=== PATIENT | male | born 1990 | race Caucasian/White ===

== ENCOUNTER 2018-01-12 18:26 | Emergency (ER) | payer OTHER ==
[~2018-01-12] VITALS: Ht 177.8 cm; Wt 72.6 kg
[2018-01-12 18:35] VITALS: Ht 177.8 cm; Wt 72.6 kg
[2018-01-12 20:07] LABS: BASOPHIL % 0.3 % (0-2); PLATELET COUNT 196 x10^3mcL (130-400)
[2018-01-12 20:12] LABS: CALCIUM 9.6 mg/dL (8.5-10.1); CARBON DIOXIDE 21.8 mmol/L (21-32); CHLORIDE SERUM 103 mmol/L (98-107); CREATININE SERUM 0.8 mg/dL (0.7-1.3); GFR1 > 60 mL/min; GLUCOSE SERUM 287 mg/dL (74-106); POTASSIUM SERUM 4.4 mmol/L (3.5-5.1); SODIUM SERUM 136 mmol/L (136-145)
[2018-01-12 21:57] VITALS: BP 154/96
== END 2018-01-12 21:43 | disposition other institution (70) ==
LOC: ED 18:26
PROVIDERS: Emergency Medicine
PROC: 3E033GC Introduction of Other Therapeutic Substance into Peripheral Vein, Percutaneous Approach (ICD-10-PCS; principal; 2018-01-12)
PROC: BW28ZZZ Computerized Tomography (CT Scan) of Head (ICD-10-PCS; 2018-01-12)
PROC: BR20ZZZ Computerized Tomography (CT Scan) of Cervical Spine (ICD-10-PCS; 2018-01-12)
DX: S13.9XXA Sprain of joints and ligaments of unspecified parts of neck, initial encounter (principal); R51 Headache; E11.9 Type 2 diabetes mellitus without complications; V43.52XA Car driver injured in collision with other type car in traffic accident, initial encounter; Y92.414 Local residential or business street as the place of occurrence of the external cause
CPT/HCPCS: J7030

== ENCOUNTER 2018-01-12 18:26 | Emergency (ER) | payer OTHER | END 2018-01-12 21:43 | disposition other institution (70) | LOC: ED 18:26 | DX: Z02.89 Encounter for other administrative examinations (principal) ==